=== PATIENT | female | born 1985 | race Caucasian/White ===

== ENCOUNTER 2017-04-15 19:49 | Emergency (ER) | payer OTHER ==
[~2017-04-15] VITALS: Ht 162.6 cm; Wt 91.6 kg
[~2017-04-15 19:49] MED LIST: ACIDOPHILUS1 EACH PO; AMOXICILLIN500 M2 PO; CLINDAMYCIN HC300 M1 PO; ULTRAM50 M1 PO
--- NOTE | 2017-04-15 20:42 | ED HEADACHE COMPLAINT ---
History of Present Illness General Chief Complaint: Headache Stated Complaint: HEADACHE Source: patient, old records Exam Limitations: no limitations Vital Signs & Intake/Output Vital Signs & Intake/Output Vital Signs Date Time Temp Pulse Resp B/P B/P Pulse O2 O2 Flow FiO2 Mean Ox Delivery Rate 04/15 2251 98.5 82 16 113/63 97 Room Air 04/15 2026 Room Air 04/16 1999 98.2 108 20 156/89 98 Room Air Allergies Coded Allergies: No Known Allergies (09/21/16) Reconcile Medications Clindamycin HCl 300 MG CAPSULE 1 CAP PO Q6 cellulitis . Lactobacillus Acidophilus (Acidophilus) 1 EACH CAPSULE 1 CAP PO DAILY gut health . Meclizine HCl 25 MG TABLET 1 TAB PO TIDPRN PRN dizziness Tramadol HCl (Ultram) 50 MG TABLET 1-2 TAB PO Q6P PRN PAIN Triage Note: PT REPORTS HAVING THE WORST HEADACHE OF "MY LIFE". PT CALLED MD WHO TOLD HER TO COME TO ED FOR EVALUATION. 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 Triage Nurses Notes Reviewed? yes Onset: Gradual Duration: day(s): Timing: recent history Quality/Severity: severe, achy Severity Numbers: 8 : No Patient currently breastfeeds: No HPI: 31yo female with hx of migraines presents to ED complaining of severe headache worsening over the past 2 days. Patient states she had intermittent mild headache for the past 3 weeks. Recently headache is worsening in severity, currently 8/10 described as frontal radiating toward occipital area, mostly on the left side. Patient states that headache is similar to previous migraines however worse in severity and duration. Patient also complaining of left-sided facial numbness which began last night. She also has tingling sensation in her left arm. Patient denies recent fall or head trauma, unilateral weakness, visual changes, vomiting, chest pain, dyspnea. Past History Travel History Traveled to [place] past 21 day No Medical History Any Pertinent Medical History? see below for history Neurological: migraine EENT: NONE Cardiovascular: NONE Respiratory: NONE Gastrointestinal: NONE Hepatic: NONE Renal: NONE Musculoskeletal: NONE Psychiatric: NONE Endocrine: NONE Blood Disorders: NONE Cancer(s): NONE [employer] WORK[employer]/Reproductive: [employer] History of MRSA: No History of VRE: No History of CDIFF: No Surgical History Surgical History: none (Endometriosis surgery), N Psychosocial History Who do you live with Family Services at Home None What is your primary language Portuguese Tobacco Use: Current Daily Use Daily Tobacco Use Amount/Type: => 5 Cigarettes daily ETOH Use: occasional use Illicit Drug Use: denies illicit drug use Family History Hx Contributory? No Review of Systems Review of Systems Constitutional: Reports: no symptoms. Eyes: Reports: no symptoms. Ears, Nose, Throat, Mouth: Reports: no symptoms. Respiratory: Reports: no symptoms. Cardiovascular: Reports: no symptoms. Gastrointestinal/Abdominal: Reports: no symptoms. Genitourinary: Reports: no symptoms. Musculoskeletal: Reports: no symptoms. Skin: Reports: no symptoms. Neurological/Psychological: Reports: see HPI. Hematologic/Endocrine: Reports: no symptoms. Endocrine: Reports: no symptoms. Immunologic/Allergic: Reports: no symptoms. All Other Systems: Reviewed and Negative Physical Exam Physical Exam General Appearance: well developed/nourished, no apparent distress, alert, awake Head: atraumatic, normal appearance Eyes: Bilateral: normal appearance, PERRL, EOMI. Ears, Nose, Throat: normal pharynx, normal ENT inspection, hearing grossly normal Neck: normal inspection, supple, full range of motion Respiratory: normal breath sounds, no respiratory distress, lungs clear Cardiovascular: regular rate/rhythm Back: normal inspection, normal range of motion Extremities: normal inspection, normal range of motion Psychiatric: awake, alert, oriented x 3 Cranial Nerves: normal hearing, normal speech, PERRL Coordination/Gait: normal finger to nose, normal gait Motor/Sensory: reported diminished sensation to left face Skin: intact, normal color, warm/dry Core Measures Sepsis Present: No Sepsis Focused Exam Completed? No Progress Differential Diagnosis: cluster LANGE, encephalitis, IC mass/tumor, intracranial Hem., migraine LANGE, musculoskeletal pain, sinusitis, subarach. Hem., tension LANGE, TMJ syndrome Plan of Care: Orders Procedure Date/time Status URINE 04/15 2041 Complete TROPONIN LEVEL 04/15 2041 Complete COMPREHENSIVE METABOLIC PANEL 04/15 2041 Complete CBC WITHOUT DIFFERENTIAL 04/15 2041 Complete EKG 04/15 1956 Active Laboratory Tests 04/15/172113: Anion Gap 10, Estimated GFR > 60, BUN/Creatinine Ratio 18.3, Glucose 84, Calcium 8.1 L, Total Bilirubin 0.2, AST 18, ALT 35, Alkaline Phosphatase 63, Troponin I < 0.01, Total Protein 6.0 L, Albumin 3.3 L, Globulin 2.7, Albumin/Globulin Ratio 1.2, CBC w Diff NO MAN DIFF REQ, RBC 4.80, MCV 92.4, MCH 30.9, MCHC 33.4, RDW 13.8, MPV 8.3, Gran % 52.4, Lymphocytes % 34.8, Monocytes % 8.8, Eosinophils % 3.5, Basophils % 0.5, Absolute Granulocytes 5.0, Absolute Lymphocytes 3.3, Absolute Monocytes 0.8 H, Absolute Eosinophils 0.3, Absolute Basophils 0, Urine Test NEGATIVE Patient CT scan without acute abnormality. Patient corrected calcium is 8.7. Patient reports diminished sensation to left face however no other focal neurologic deficit. Patient reports improvement in headache following IV medications. Patient states headache now 2/10. She feels ready to go home at this time. Patient to follow-up with her primary care doctor for further evaluation. Recommended discussion regarding head MRI of her symptoms are persistent. Patient referred to neurologist. The patient agrees with the plan of care. Vital signs are stable, she is nontoxic appearing, no acute distress, ambulating without difficulty leaving the emergency department. Diagnostic Imaging: Viewed by Me: CT Scan. Discussed w/RAD: CT Scan. Radiology Impression: PATIENT: CONI LUO PRESENT AGE: 31 PATIENT ACCOUNT NO: [id number] : 84 LOCATION: [facility] ORDERING PHYSICIAN: Sulma CALDERON SERVICE DATE: 04/15/17 EXAM TYPE: CAT - CT HEAD WO IV CONTRAST CT HEAD WITHOUT IV CONTRAST CLINICAL INFORMATION: Headache with left-sided facial numbness. COMPARISON: None available. TECHNIQUE: Contiguous axial imaging was performed from the skull base to vertex without intravenous administration of contrast. FINDINGS: There is no intracranial hemorrhage, hydrocephalus, extra-axial surface collection, midline shift, or other herniation pattern. Flynn to white matter differentiation is diffusely maintained without evidence of an evolved acute territorial infarct. The basilar cisterns are preserved. No significant soft tissue abnormality. No acute osseous abnormality. Moderate mucosal thickening within the left sphenoid sinus. The remaining paranasal sinuses and the mastoid air cells are clear. IMPRESSION: No acute intracranial abnormality. DICTATED BY: Shade Noel MD DATE/TIME DICTATED:04/15/172227 PARTS REMOVER:RAD.[email or web address] DATE/TIME TRANSCRIBED:2227 CONFIDENTIAL, DO NOT COPY WITHOUT APPROPRIATE AUTHORIZATION. < Electronically signed in Other Vendor System> SIGNED BY: Shade Noel MD 04/15/172236 Initial ED EKG: sinus rhythm @96bpm Departure Departure Disposition: HOME OR SELF CARE Condition: Stable Clinical Impression Primary Impression: Headache Qualifiers: Headache type: unspecified Headache chronicity pattern: acute headache Intractability: not intractable Qualified Code: R51 - Headache Referrals: London Stoner MD, V. (PCP/Family) Additional Instructions: Follow-up with your primary care doctor this week. Take Reglan as prescribed as needed for headache. Take meclizine as prescribed as needed for dizziness. Her calcium was slightly low here in the emergency department, ate foods rich in calcium for the next week such as cheeses, vegetables, dairy. Have your primary care doctor recheck her calcium level in the next month. You were referred to a neurologist, Dr. Kirkpatrick, please see regarding your headache today. Return with worsening symptoms or concerns. Please note that there might be incidental findings in your evaluation that are unrelated to the current emergency department visit. Please notify your primary care doctor about this emergency department visit in order to obtain and review all of the testing performed so that these incidental findings can be monitored as needed. If you had an x-ray performed, please understand that some fractures may not be seen on the initial set of x-rays. If your symptoms persist you might need a repeat set of x-rays to check for such a fracture. If you had a laceration evaluated, please understand that foreign bodies such as glass or wood may not be visible to the naked eye or on plain x-rays. If the wound becomes red, swollen, increasingly more painful or if there is any drainage from the wound, please have it reevaluated by a physician for the possibility of a retained foreign body. If you're unable to follow up as outlined in the discharge instructions please return to the emergency department. Thank you for choosing the Emergency Department for your care. It was a pleasure to serve you today. Departure Forms: Customer Survey General Discharge Information Prescriptions: Current Visit Scripts Meclizine HCl 1 TAB PO TIDPRN PRN dizziness #20 TAB
[2017-04-15 21:25] LABS: ABSOLUTE BASOPHIL COUNT 0 /CUMM (0.0-0.2); ABSOLUTE EOSINOPHIL COUNT 0.3 /CUMM (0.0-0.7); ABSOLUTE LYMPH COUNT 3.3 /CUMM (1.2-3.4); ABSOLUTE MONOCYTE COUNT 0.8 /CUMM (0.10-0.60); BASOPHIL % 0.5 % (0.0-2.0); EOSINOPHIL % 3.5 % (0-5); GRANULOCYTE % 52.4 % (42.2-75.2); HEMATOCRIT 44.4 % (37-47); MEAN CORPUSCULAR HGB 30.9 PG (27.0-31.0); MEAN CORPUSCULAR HGB CONC 33.4 G/DL (33.0-37.0); MEAN CORPUSCULAR VOLUME 92.4 FL (81.0-99.0); MEAN PLATELET VOLUME 8.3 FL (7.4-10.4); PLATELET COUNT 294 /CUMM (130-400); RBC DISTRIBUTION WIDTH 13.8 % (11.5-14.5); WHITE BLOOD CELL COUNT 9.5 /CUMM (4.8-10.8)
--- NOTE | 2017-04-15 22:37 | CT SCAN REPORT ---
CT HEAD WITHOUT IV CONTRAST CLINICAL INFORMATION: Headache with left-sided facial numbness. COMPARISON: None available. TECHNIQUE: Contiguous axial imaging was performed from the skull base to vertex without intravenous administration of contrast. FINDINGS: There is no intracranial hemorrhage, hydrocephalus, extra-axial surface collection, midline shift, or other herniation pattern. Flynn to white matter differentiation is diffusely maintained without evidence of an evolved acute territorial infarct. The basilar cisterns are preserved. No significant soft tissue abnormality. No acute osseous abnormality. Moderate mucosal thickening within the left sphenoid sinus. The remaining paranasal sinuses and the mastoid air cells are clear. IMPRESSION: No acute intracranial abnormality.
[2017-04-15] MEDS ORDERED: MECLIZINE HCL25 MG PO (22:45)
[2017-04-15 22:51] VITALS: BP 113/63
== END 2017-04-15 22:51 ==
LOC: ERH 19:49
PROVIDERS: Physician Assistant
DX: R51 Headache (principal)
CPT/HCPCS: 81025; 93005; 93010; 96374; J2765